=== PATIENT | female | born 2000 ===

== ENCOUNTER 2024-09-15 09:03 | Outpatient (CLI) | payer OTHER | END 2024-09-15 09:04 | disposition home or self-care (01) | LOC: PRENATAL 09:03 | PROVIDERS: ATTEND Obstetrics & Gynecology Maternal & Fetal Medicine | DX: O44.00 Complete placenta previa NOS or without hemorrhage, unspecified trimester (principal); Z3A.23 23 weeks gestation of pregnancy ==

== ENCOUNTER 2024-11-22 16:39 | Outpatient (CLI) | payer OTHER | END 2024-11-22 16:40 | disposition home or self-care (01) | LOC: PRENATAL 16:39 | PROVIDERS: ATTEND Obstetrics & Gynecology Maternal & Fetal Medicine | DX: O26.849 Uterine size-date discrepancy, unspecified trimester (principal); O36.8130 Decreased fetal movements, third trimester, not applicable or unspecified ==